=== PATIENT | male | born 1960 | race African-American/Black ===

== ENCOUNTER 2017-06-05 14:05 | Emergency (ER) | payer SELFPAY ==
[~2017-06-05] VITALS: Ht 188 cm; Wt 104.5 kg
[~2017-06-05 14:05] MED LIST: CYCL-36 PO; NAPR500 PO
[2017-06-05 14:06] VITALS: BP 100/57; PULSE 60; RESP 16; TEMP 97.7; O2SAT 100
--- NOTE | 2017-06-05 14:41 | PD ---
HPI Chief Complaint: Syncope/Near-Syncope Time Seen by Provider: 14:40 Travel History International Travel<30 days: No Contact w/Intl Traveler<30days: No Traveled to known affect area: No History of Present Illness HPI 57-year-old male came to the emergency room with history of a syncopal episode that was witnessed by his today. Currently patient is awake and eating a can of soup. He says this happens whenever his sugar goes down. He was driving from [facility] today and was in a valenzuela to get here and did not eat food. He felt like he was going to pass out and after that he is not really aware of what happened. His was sitting next to him per cup of cold water on him which made the patient come back to consciousness again. He never checked his sugar. However he says he feels much better now. No history of chest pain or headache. Vital signs are stable. Patient does not take any medications. PFSH Past Medical History Narrative Medical List of his past medical, surgical, social and family history is reviewed from the nursing note. Cardiovascular Problems: Yes (HTN) Diminished Hearing: No Social History Alcohol Use: No Tobacco Use: Yes Substance Use: No Allergies-Medications (Allergen,Severity, Reaction): Coded Allergies: No Known Allergies (Verified , 02/22/16) Comments No known drug allergies. Reported Meds & Prescriptions Reported Meds & Active Scripts Active Reported Hydrochlorothiazide 25 Mg Tab 25 Mg PO DAILY Lisinopril 40 Mg Tab 40 Mg PO DAILY Narrative Medication List of his home medications reviewed from the nursing note. Review of Systems Except as stated in HPI: all other systems reviewed are Neg Neurologic: Positive: Syncope Physical Exam Narrative GENERAL: Awake, alert, no obvious distress SKIN: Focused skin assessment warm/dry. HEAD: Atraumatic. Normocephalic. EYES: Pupils equal and round. No scleral icterus. No injection or drainage. ENT: No nasal bleeding or discharge. Mucous membranes pink and moist. NECK: Trachea midline. No JVD. CARDIOVASCULAR: Regular rate and rhythm. No murmur appreciated. RESPIRATORY: No accessory muscle use. Clear to auscultation. Breath sounds equal bilaterally. GASTROINTESTINAL: Abdomen soft, non-tender, nondistended. Hepatic and splenic margins not palpable. MUSCULOSKELETAL: No obvious deformities. No clubbing. No cyanosis. No edema. NEUROLOGICAL: Awake and alert. No obvious cranial nerve deficits. Motor grossly within normal limits. Normal speech. PSYCHIATRIC: Appropriate mood and affect; insight and judgment normal. Data Data Last Documented VS Vital Signs Date Time Temp Pulse Resp B/P (MAP) Pulse Ox O2 Delivery O2 Flow Rate FiO2 06/05/17 17:00 06/05/17 14:48 52 15 98 Room Air 06/05/17 14:06 97.7 Orders Orders Electrocardiogram (06/05/17 14:16) Basic Metabolic Panel (Bmp) (06/05/17 14:16) Complete Blood Count With Diff (06/05/17 14:16) Magnesium (Mg) (06/05/17 14:16) Act Partial Throm Time (Ptt) (06/05/17 14:16) Prothrombin Time / Inr (Pt) (06/05/17 14:16) Blood Glucose (06/05/17 14:51) Drug Screen, Random Urine (06/05/17 14:52) Sodium Chlor 0.9% 1000 Ml Inj (Ns 1000 M (06/05/17 15:30) Troponin I (06/05/17 15:25) Ed Discharge Order (06/05/17 16:20) Labs Laboratory Tests Test 06/05/17 14:35 06/05/17 16:10 White Blood Count 7.4 TH/MM3 Red Blood Count 4.59 MIL/MM3 Hemoglobin 13.5 GM/DL Hematocrit 39.8 % Mean Corpuscular Volume 86.8 FL Mean Corpuscular Hemoglobin 29.4 PG Mean Corpuscular Hemoglobin Concent 33.8 % Red Cell Distribution Width 13.5 % Platelet Count 229 TH/MM3 Mean Platelet Volume 8.5 FL Neutrophils (%) (Auto) 44.0 % Lymphocytes (%) (Auto) 46.0 % Monocytes (%) (Auto) 6.1 % Eosinophils (%) (Auto) 3.3 % Basophils (%) (Auto) 0.6 % Neutrophils # (Auto) 3.2 TH/MM3 Lymphocytes # (Auto) 3.4 TH/MM3 Monocytes # (Auto) 0.5 TH/MM3 Eosinophils # (Auto) 0.2 TH/MM3 Basophils # (Auto) 0.0 TH/MM3 CBC Comment DIFF FINAL Differential Comment Prothrombin Time 10.5 SEC Prothromb Time International Ratio 1.0 RATIO Activated Partial Thromboplast Time 22.2 SEC Blood Urea Nitrogen 20 MG/DL Creatinine 1.31 MG/DL Random Glucose 130 MG/DL Calcium Level 8.8 MG/DL Magnesium Level 2.0 MG/DL Sodium Level 136 MEQ/L Potassium Level 3.9 MEQ/L Chloride Level 104 MEQ/L Carbon Dioxide Level 23.1 MEQ/L Anion Gap 9 MEQ/L Estimat Glomerular Filtration Rate 69 ML/MIN Troponin I LESS THAN 0.02 NG/ML Urine Opiates Screen NEG Urine Barbiturates Screen NEG Urine Amphetamines Screen NEG Urine Benzodiazepines Screen NEG Urine Cocaine Screen NEG Urine Cannabinoids Screen POS MDM Medical Decision Making Medical Screen Exam Complete: Yes Emergency Medical Condition: Yes Medical Record Reviewed: Yes Interpretation(s) Twelve-lead EKG was reviewed by me. Normal sinus rhythm, normal axis, bradycardia, nonspecific ST-T wave changes. Heart rate of 51 bpm. Differential Diagnosis Vasovagal syncope, orthostatic syncope, hypoglycemia Narrative Course 4:18 PM blood test results of back and within acceptable limits except for his creatinine which is slightly elevated. Blood sugar is not low. I'm comfortable discharging him home at this point. Procedures EKG Prior to Arrival: No Diagnosis Primary Impression: Syncope Qualified Codes: R55 - Syncope and collapse Referrals: Primary Care Physician Additional Instructions: Please return to the ER if the condition worsens or any other new concerns. You should not be driving until you has seen your primary care physician and a cardiology consultation has been done for a Holter monitoring and you have been cleared. Disposition: 01 DISCHARGE HOME Condition: Stable Sara Rodrigez MD Jun 05, 2017 14:40
[2017-06-05] MEDS ORDERED: HYDR25TA5 PO (14:46)
[2017-06-05] MEDS ORDERED: LISI40TA PO (14:46)
[2017-06-05 14:48] VITALS: BP 104/61; PULSE 52; RESP 15; O2SAT 98
[2017-06-05 14:59] LABS: AUTOMATED NEUTROPHIL # 3.2 TH/MM3 (1.8-7.7); BASOPHIL % 0.6 % (0.0-2.0); EOSINOPHIL # 0.2 TH/MM3 (0-0.4); EOSINOPHIL % 3.3 % (0.0-4.0); HEMATOCRIT 39.8 % (39.0-51.0); HEMO FLAGS DIFF FINAL; LYMPHOCYTE # 3.4 TH/MM3 (1.0-4.8); MEAN CELL VOLUME 86.8 FL (80.0-100.0); MEAN CORPUSCULAR HEMOGLOBIN 29.4 PG (27.0-34.0); MEAN CORPUSCULAR HGB CONC 33.8 % (32.0-36.0); MONO % 6.1 % (0.0-8.0); PLATELET COUNT 229 TH/MM3 (150-450); RED BLOOD COUNT 4.59 MIL/MM3 (4.50-5.90); RED CELL DISTRIBUTION WIDTH 13.5 % (11.6-17.2); WHITE BLOOD COUNT 7.4 TH/MM3 (4.0-11.0)
[2017-06-05 15:15] LABS: BICARBONATE 23.1 MEQ/L (21.0-32.0); POTASSIUM 3.9 MEQ/L (3.5-5.1)
[2017-06-05 15:22] LABS: APTT (PATIENT) 22.2 SEC (24.3-30.1); PROTHROMBIN TIME - PATIENT 10.5 SEC (9.8-11.6)
[2017-06-05] MEDS ORDERED: SODIUM CHLOR 0.9% 1000 ML INJ 1,000 ML IV ONE (15:30)
--- NOTE | 2017-06-06 13:20 | EKG ---
Date Performed: 06/05/2017 Time Performed: 14:46:22 PTAGE: 57 years EKG: SINUS BRADYCARDIA POSSIBLE RIGHT VENTRICULAR CONDUCTION DELAY ST ELEVATION, PROBABLY EARLY REPOLARIZATION BORDERLINE ECG NO PREVIOUS TRACING DOCTOR: Rubens Koch Interpretating Date/Time 06/06/2017 13:15:47
== END 2017-06-05 17:01 | disposition home or self-care (01) ==
LOC: NEPE 14:05
DX: R00.1 Bradycardia, unspecified (principal); I10 Essential (primary) hypertension; Z72.0 Tobacco use
CPT/HCPCS: 80048; 80307; 83735; 84484; 85025; 85610; 85730; 93005